=== PATIENT | male | born 1990 | race Caucasian/White ===

== ENCOUNTER 2021-10-05 16:14 | Emergency (ER) | payer MEDICAID ==
--- NOTE | 2021-10-05 16:30 | NUR ---
called 2x in lobby and outside. no response at this time.
--- NOTE | 2021-10-05 16:45 | NUR ---
CALLED PATIENT IN LOBBY AND OUTSIDE. NO RESPONSE.
--- NOTE | 2021-10-05 16:50 | NUR ---
PATIENT LEFT WITHOUT BEING SEEN.
== END 2021-10-05 16:36 | disposition left against medical advice (07) ==
LOC: MED 16:14
DX: Z53.21 Procedure and treatment not carried out due to patient leaving prior to being seen by health care provider (principal)